=== PATIENT | male | born 1960 | race Caucasian/White ===

== ENCOUNTER 2020-11-15 13:16 | Emergency (ER) | payer BC ==
[~2020-11-15] VITALS: Ht 170.2 cm; Wt 78.0 kg
[2020-11-15 13:22] VITALS: BP_SYST 153
[2020-11-15] MEDS ORDERED: BACITRACIN 1 GM OINT TP ONE (13:31)
[2020-11-15] MEDS: DIPH-TET-PERTUS Vaccine 0.5 ML VIAL (ADACEL) I.M. ONE (14:02)
[2020-11-15] MEDS: AMPICILLIN SODIUM/SULBACTAM NA 3 GM VIAL IM ONE (14:02)
[2020-11-15] MEDS: LIDOCAINE/EPI 2% 1:100000 20 ML VIAL INJ ONE (14:03)
[2020-11-15 15:34] VITALS: BP_SYST 148
== END 2020-11-15 15:31 | disposition home or self-care (01) ==
LOC: SED 13:16
DX: S61.412A Laceration without foreign body of left hand, initial encounter (principal); W26.8XXA Contact with other sharp object(s), not elsewhere classified, initial encounter; Y93.89 Activity, other specified; Y92.89 Other specified places as the place of occurrence of the external cause; Y99.8 Other external cause status
CPT/HCPCS: 12002; 73120; 90471; 90715; 96372; 99284; J0295

== ENCOUNTER 2021-11-08 14:29 | Emergency (ER) | payer BC ==
[~2021-11-08] VITALS: Ht 175.3 cm; Wt 77.1 kg
[2021-11-08 14:45] VITALS: BP_SYST 151
[2021-11-08] MEDS ORDERED: METH-634 PO (18:58)
[2021-11-08 20:14] VITALS: BP_SYST 147
== END 2021-11-08 20:12 | disposition home or self-care (01) ==
LOC: SED 14:29
DX: M54.12 Radiculopathy, cervical region (principal); Z79.899 Other long term (current) drug therapy
CPT/HCPCS: 72040-TC; 93005; 99283